=== PATIENT | female | born 1995 | race Caucasian/White ===

== ENCOUNTER 2016-12-31 07:32 | Observation (INO) | payer MEDICAID ==
[~2016-12-31] VITALS: Ht 160 cm; Wt 75.7 kg
[2017-01-01] MEDS ORDERED: PREN-88 PO (11:11)
== END 2016-12-31 18:25 | disposition home or self-care (01) ==
LOC: L&D 16:15
PROVIDERS: ADMIT Obstetrics & Gynecology; ATTEND Obstetrics & Gynecology
DX: Z34.90 Encounter for supervision of normal pregnancy, unspecified, unspecified trimester (principal)
CPT/HCPCS: 99281; G0378